=== PATIENT | male | born 1965 | race American Indian/Alaskan Native ===

== ENCOUNTER 2018-09-06 10:45 | Emergency (ER) | payer OTHER ==
[2018-09-06 10:53] VITALS: BP 138/103; PULSE 107; TEMP 98; BMI 30.4
[2018-09-06] MEDS ORDERED: DIPHTH,PERTUSS(ACELL),TET 0.5 ML DISP.SYRIN IM ONE ×2 (11:23→11:42)
--- NOTE | 2018-09-06 11:39 | PDOC ---
History of Present Illness - General Chief Complaint: Bone Injury Stated Complaint: RT HAND INJURY Time Seen by Provider: 09/06/18 11:16 - History of Present Illness Initial Comments: 09/06/18 11:34 53-year-old male presents for evaluation of right wrist pain. He has no comorbidities. He is not current on tetanus. 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 He complains of right arm pain. Past History - Past Medical History Allergies/Adverse Reactions: Allergies Allergy/AdvReac Type Severity Reaction Status Date / Time No Known Allergies Allergy Verified 09/06/18 10:48 Home Medications: Ambulatory Orders NK [No Known Home Medication] 09/06/18 COPD: No - Suicide/Smoking/Psychosocial Hx Smoking History: Never smoked Hx Alcohol Use: No Drug/Substance Use Hx: No Review of Systems - Review of Systems HEENTM: No: Blurred Vision, Recent change in vision, Double Vision ABD/GI: No: Nausea, Vomiting Musculoskeletal: Yes: Joint Pain Neurological: No: Headache *Physical Exam - Vital Signs Last Vital Signs Temp Pulse Resp BP Pulse Ox 98.0 F 107 H 20 138/103 H 99 09/06/18 10:48 09/06/18 10:48 09/06/18 10:48 09/06/18 10:48 09/06/18 10:48 - Physical Exam Comments: 09/06/18 11:35 Right upper extremity skin color and temperature are normal there is full range of motion of the shoulder and elbow diffuse tenderness about the forearm musculature. No bony tenderness. Decreased wrist range of motion. Mild swelling about the dorsum of the wrist. No tenderness about the distal radius radial styloid distal ulnar ulnar styloid. The majority of the tenderness is about the carpus. There are no gross sensorimotor deficits. He is neurovascularly intact.UE compartments are soft and non tender. No discomfort about the forearm with passive finger motion and gentle wrist motion There is a small superficial abrasion about the R side of the nose 09/06/18 11:37 09/06/18 11:39 ED Treatment Course - RADIOLOGY Radiology Studies Ordered: Category Date Time Status WRIST W/HAND-RIGHT* [RAD] Stat Radiology 09/06/18 11:23 Ordered Medical Decision Making - Medical Decision Making 09/06/18 11:35 X-ray show a small fracture at the ulnar styloid. Patient is nontender at the ulnar styloid this is an old fracture. Diffuse tenderness about the carpus without any scapholunate widening. Most likely a wrist sprain. I did not image the forearm or elbow. Patient has no bony tenderness in these areas. I will put him in a wrist splint and have him follow-up with orthopedic surgery and advised on use Tylenol and Motrin. 09/06/18 11:36 I have also updated his tetanus because of a small superfical abrasion on the R side of the nose *DC/Admit/Observation/Transfer Diagnosis at time of Disposition: Abrasion, Right wrist sprain - Discharge Dispostion Disposition: HOME Condition at time of disposition: Stable Decision to Admit order: No - Referrals Referrals: Shubham Orozco DO [Staff Physician] - - Patient Instructions Printed Discharge Instructions: DI for Abrasion, Wrist Sprain, DI for Wrist Sprain Additional Instructions: He may take Tylenol and Motrin as directed for pain. Please keep the splint on. He may remove the splint for hygiene. Please sleep in the splint. Follow-up with orthopedic surgery in 1-2 days for further evaluation and treatment options and return to the emergency room should symptoms worsen - Post Discharge Activity
[2018-09-06] MEDS ORDERED: IBUPROFEN 600 MG TABLET (FP) PO ONE ×2 (11:44→11:45)
== END 2018-09-06 12:00 | disposition home or self-care (01) ==
LOC: JER 10:45
PROC: 3E0234Z Introduction of Serum, Toxoid and Vaccine into Muscle, Percutaneous Approach (ICD-10-PCS; principal; 2018-09-06)
PROC: 2W3CX1Z Immobilization of Right Lower Arm using Splint (ICD-10-PCS; 2018-09-06)
DX: S63.501A Unspecified sprain of right wrist, initial encounter (principal); S00.31XA Abrasion of nose, initial encounter; W31.89XA Contact with other specified machinery, initial encounter; Y93.89 Activity, other specified; Y92.63 Factory as the place of occurrence of the external cause; Y99.0 Civilian activity done for income or pay
CPT/HCPCS: 29125; 73110-TC-RT-FY; 73130-TC-RT-FY; 90471; 90715; 99281-25